=== PATIENT | female | born 2000 | race African-American/Black ===

== ENCOUNTER 2024-12-11 15:38 | Emergency (ER) | payer OTHER ==
[~2024-12-11] VITALS: Ht 165.1 cm; Wt 74.8 kg
[2024-12-11 15:39] VITALS: PULSE 115; O2SAT 99
[2024-12-11 15:56] VITALS: BP 112/69; RESP 16; TEMP 36.8; O2SAT 98
[2024-12-11] MEDS ORDERED: VALA10002 MT (17:50)
== END 2024-12-11 18:02 | disposition home or self-care (01) ==
LOC: ER 15:38
DX: B00.1 Herpesviral vesicular dermatitis (principal); Z79.624 Long term (current) use of inhibitors of nucleotide synthesis
CPT/HCPCS: 99283